=== PATIENT | female | born 1975 | race Caucasian/White ===

== ENCOUNTER 2023-06-08 10:42 | Emergency (ER) | payer OTHER, MEDICAID, SELFPAY ==
[2023-06-08 10:48] VITALS: BP 158/101; BP 191/34; PULSE 100; PULSE 110; RESP 22; TEMP 36.9; O2SAT 97; O2SAT 98; BMI 32.9
--- NOTE | 2023-06-08 10:52 | ECG_ITS ---
Test Reason : high bp Blood Pressure : / mmHG Vent. Rate : 101 BPM Atrial Rate : 101 BPM P-R Int : 180 ms QRS Dur : 082 ms QT Int : 354 ms P-R-T Axes : 027 064 022 degrees QTc Int : 459 ms Sinus tachycardia Otherwise normal ECG When compared with ECG of 12-NOV-2016 13:28, Vent. rate has increased BY 45 BPM QT has lengthened Referred By: Dipti Reynoso Electronically Signed By:VINICIO GUAJARDO
--- NOTE | 2023-06-08 10:52 | ED.GENADULT ---
HPI - General Adult General Chief complaint: General Medical Stated complaint: SWEATY,HIGH BP 190/76 @ WORK PER EMS Source: patient Mode of arrival: EMS Limitations: no limitations History of Present Illness HPI narrative: 48 yo female admits to a lot of caffeine just had a URI negative COVID test x 3 at home - works in elementary school as a para. Notes today at school felt sweat and hot. She did not have a fever. School RN reported BP was high 191/188. Patient has not been to a doctor in 5 years. She has no CP/SOB, headaches, nausea, numbness or weakness. Has not taken any OTC cough or cold medications. MD complaint: elevated BP, felt hot and sweaty Onset (ago): hour(s) (1) Severity: mild Relieving factors: none Exacerbating factors: none Associated symptoms: other (head cold symptoms) Treatments prior to arrival: none Related Data Previous Rx's Medication Instructions Recorded lisinopril 5 mg tablet 5 mg PO DAILY #30 tabs 06/08/23 Allergies Allergy/AdvReac Type Severity Reaction Status Date / Time No Known Allergies Allergy Unverified 06/05/20 16:37 [No Known Allergies*] Review of Systems Review of Systems: Constitutional : No Fever, No Chills, No Fatigue, pos sweats ENT/Mouth : No sore throat, pos Rhinorrhea Eyes: No Eye Pain, No Swelling, No Redness Cardiovascular : No Chest Pain, No SOB, No Dyspnea on Exertion Respiratory : No Cough, No Sputum Gastrointestinal : No Nausea, No Vomiting, No Diarrhea, No abdominal Pain Genitourinary : No Dysuria, No Urinary Frequency, No Hematuria, Musculoskeletal : No joint pain, No Myalgias, No Joint Swelling Skin : No Skin Lesions, No rash Neuro : No Weakness, No Numbness, No Dizziness, no Headache Psych : No Anxiety/Panic, No Depression All other systems reviewed and are negative [facility] Past Medical History Attestation statement: The following information was validated with the patient. Medical History No pertinent past medical history Social History Social History (Updated 06/08/23 @ 10:54 by Dipti Reynoso DO) Alcohol intake: current Alcohol intake frequency: holidays/special occasions only Patient Tobacco Use Status: Current everyday Tobacco user Smoked in Last 30 Days: Yes Use of substances other than those prescribed or required for medical reasons: No Advance Directives: No Physical Exam ED Vital Signs: Vital Signs - 24 hr 06/08/23 10:48 06/08/23 12:31 06/08/23 13:00 Temperature 98.4 F 98.3 F Pulse Rate 110 H 91 94 Respiratory Rate 22 H 18 16 Blood Pressure 191/34 H 183/122 H 175/124 H Pulse Oximetry 97 97 98 Oxygen Delivery Method Room Air Room Air Room Air BMI result Body Mass Index 32.9 Appearance: Alert. Oriented X3. No acute distress. Eyes: Pupils equal, round and reactive to light. ENT: Pharynx normal. Neck: Normal inspection. Neck supple. CVS: tachycardic heart rate and rhythm. Pulses normal. Respiratory: No respiratory distress. Breath sounds normal. Abdomen: Soft and nontender. Skin: Skin warm and dry. Normal skin color. Normal skin turgor. Extremities: No lower extremity edema. No calf ttp Neuro: Oriented X 3. No motor deficit. No sensory deficit. Course Course Course Narrative: asymptomatic will start on lisinopril Medications Administered Discontinued Medications Generic Name Dose Route Start Last Admin Trade Name Freq PRN Reason Stop Dose Admin Lisinopril 5 mg 06/08/23 12:34 06/08/23 12:43 Lisinopril 5 Mg Tablet PO 06/08/23 12:35 5 mg ONCE ONE Administration Protocol Medical Decision Making Medical Decision Making [facility] Narrative: 48 yo female with no sig PMH but doesn't go to the doctors regularly has not had a check up in 5 years here with c/o recent URI not on OTC cough or cold medications now with asymptomatic HTN - at this time no CP/SOB, headaches no signs of end organ damage will obtain EKG, basic labs, COVID/flu swabs possibly start on low dose anti-HTN if BP remains high. doubt ICH given no headaches or neuro findings. Differential Diagnosis Differential Diagnoses: The differential diagnosis associated with the presentation includes asymptomatic HTN, response to URI, caffeine ingestion, anxiety Admission/Observation Consideration of admission/observation: Escalation of care including admission/observation considered asymptomatic can be managed as outpatient Lab Data [facility] Lab Attestation statement: I reviewed the patient's lab results. 06/08/23 12:24 06/08/23 12:23 Labs: Lab Results 09/20/23 09/20/23 Range/Units 12:23 12:24 WBC 7.9 (4.8-10.8) X10*3/uL RBC 5.50 (4.20-5.50) X10*6/uL Hgb 14.8 (12.0-16.0) g/dl Hct 43.8 (37.0-47.0) % MCV 79.6 L (80.0-98.0) fL MCH 26.9 L (27.0-33.0) pg MCHC 33.8 (31.0-35.0) g/dl RDW 12.7 (11.0-16.0) % Plt Count 433 H (160-400) X10*3/uL MPV 8.7 L (9.4-12.3) fL Immature Gran % (Auto) 0.3 (0.0-0.4) % Neut % (Auto) 59.9 (45-73) % Lymph % (Auto) 29.3 (20-40) % [place] % (Auto) 7.3 (2-11) % Eos % (Auto) 2.3 (0-4) % Baso % (Auto) 0.9 (0-2) % Lymph # (Auto) 2.3 (1.2-4.9) X10*3/uL [place] # (Auto) 0.6 (0.1-1.2) X10*3/uL Eos # (Auto) 0.2 (0.0-0.4) X10*3/uL Baso # (Auto) 0.1 (0.0-0.2) X10*3/uL Abs Immat Gran (auto) 0.02 (0.00-0.03) X10*3/uL Absolute Neuts (auto) 4.7 (2.0-8.3) x10*3/uL Absolute Nucleated RBC 0.000 (0.0-0.012) X10*3/uL Nucleated RBC % (auto) 0.0 (0.0-0.2) /100WBC Sodium 140 (135-145) mmol/L Potassium 4.1 (3.3-5.1) mmol/L Chloride 110 H (96-108) mmol/L Carbon Dioxide 21 L (22-29) mmol/L Anion Gap 13 (12-20) BUN 14 (9-16) mg/dL Creatinine 0.86 (0.5-1.4) mg/dL Estim Creat Clear Calc 80.0 Estimated GFR > 60 Random Glucose 90 (60-115) mg/dL Calcium 9.9 (8.4-10.2) mg/dL Magnesium 2.2 (1.6-2.6) mg/dL Total Bilirubin 0.4 (0.0-1.0) mg/dL Direct Bilirubin 0.2 (0.0-0.5) mg/dL AST 18 (5-31) U/L ALT 14 (0-31) U/L Alkaline Phosphatase 93 (39-117) U/L Total Protein 8.0 (6.5-8.0) g/dL Albumin 4.4 (3.5-5.0) g/dL COVID-19 (BETINA) Negative (Negative) COVID-19 Clin Com See Note Influenza Type A (MARIELA) Negative (Negative) Influenza Type B (MARIELA) Negative (Negative) Influenza A & B Note See Note Independent Interpretation I performed an independent interpretation of an: EKG Interpretation: Rate: 101 Rhythm: sinus tachycardia [place]: normal Normal P waves. Normal JOAQUÍN. Normal QRS complex. ST T wave : normal no MYRIAM qTC: normal prior studies: no acute ischemia The study has been interpreted contemporaneously by me. . Independent Historian Clinical information obtained from an independent historian. History obtained from or confirmed by: EMS Tests considered The following testing was considered but not selected: CT head but neuro intact and no headache doubt ICH Prescription Management I considered prescription management with: Other (lisinopril) Discharge Plan Discharge Clinical Impression: Asymptomatic hypertension Patient Disposition: Home, Self-Care Instructions: Lisinopril (By mouth), Hypertension (ED) Additional Instructions: return for oral swelling lip swelling - seek care if this happens chest pain/numbness/weakness, severe headaches or any other concerns. you need to see a PCP as soon as possible negative for flu and COVID Prescriptions: New lisinopril 5 mg tablet 5 mg PO DAILY Qty: 30 1RF Stand Alone Forms: Work/School Release Interventions: ED Discharge Assessment Last Done: 06/08/23 13:05 Discharge Date/Time: 06/08/23 13:07
[2023-06-08 12:29] LABS: MANUAL DIFF FLAG NO
[2023-06-08 12:31] VITALS: BP 183/122; PULSE 91; RESP 18; TEMP 36.8; O2SAT 97
[2023-06-08 12:31] LABS: Basophils Absolute Auto 0.1 X10*3/uL (0.0-0.2); Basophils Percent Auto 0.9 % (0-2); Eosinophils Absolute Auto 0.2 X10*3/uL (0.0-0.4); Eosinophils Percent Auto 2.3 % (0-4); Hematocrit 43.8 % (37.0-47.0); Hemoglobin 14.8 g/dl (12.0-16.0); Imm Gran Abs Auto 0.02 X10*3/uL (0.00-0.03); Imm Gran Pct Auto 0.3 % (0.0-0.4); Lymphocytes Absolute Auto 2.3 X10*3/uL (1.2-4.9); Lymphocytes Percent Auto 29.3 % (20-40); Mean Corpuscular HGB Conc 33.8 g/dl (31.0-35.0); Mean Corpuscular Hemoglobin 26.9 pg (27.0-33.0); Mean Corpuscular Volume 79.6 fL (80.0-98.0); Mean Platelet Volume 8.7 fL (9.4-12.3); Monocytes Absolute Auto 0.6 X10*3/uL (0.1-1.2); Monocytes Percent Auto 7.3 % (2-11); Neutrophils Absolute Auto 4.7 x10*3/uL (2.0-8.3); Neutrophils Percent Auto 59.9 % (45-73); Platelet Count 433 X10*3/uL (160-400); Red Cell Distribution Width 12.7 % (11.0-16.0); White Blood Count 7.9 X10*3/uL (4.8-10.8)
[2023-06-08] MEDS: lisinopriL 5 MG TABLET PO (12:43)
[2023-06-08 12:44] LABS: Alanine Aminotransferase 14 U/L (0-31); Albumin Level 4.4 g/dL (3.5-5.0); Alkaline Phosphatase 93 U/L (39-117); Anion Gap 13 (12-20); Aspartate Amino Transferase 18 U/L (5-31); Bilirubin Direct 0.2 mg/dL (0.0-0.5); Bilirubin Total 0.4 mg/dL (0.0-1.0); Blood Urea Nitrogen 14 mg/dL (9-16); Calcium 9.9 mg/dL (8.4-10.2); Carbon Dioxide 21 mmol/L (22-29); Chloride 110 mmol/L (96-108); Estimated Glomerular Filt Rate > 60; Glucose Random 90 mg/dL (60-115); Magnesium 2.2 mg/dL (1.6-2.6); Potassium 4.1 mmol/L (3.3-5.1); Sodium 140 mmol/L (135-145)
[2023-06-08 12:45] LABS: COVID-19 Test Negative (Negative); IDNOW Serial# 08D9AD1C
[2023-06-08 12:46] LABS: IDNOW Serial# BCCEAD1C; Influenza A Negative (Negative); Influenza B2 Negative (Negative)
[2023-06-08 13:00] VITALS: BP 175/124; PULSE 94; RESP 16; O2SAT 98
== END 2023-06-08 13:07 | disposition home or self-care (01) ==
PROVIDERS: Emergency Provider Emergency Medicine
DX: R61 Generalized hyperhidrosis (principal); R00.0 Tachycardia, unspecified; I10 Essential (primary) hypertension; Z20.822 Contact with and (suspected) exposure to COVID-19; Z20.828 Contact with and (suspected) exposure to other viral communicable diseases; Z79.899 Other long term (current) drug therapy
CPT/HCPCS: 36415; 80048; 80076; 83735; 85025; 87502; 87635; 93005; 99283; 99284

== ENCOUNTER 2023-08-06 17:28 | Emergency (ER) | payer OTHER, SELFPAY ==
[2023-08-06 17:39] VITALS: BP 179/114; PULSE 102; RESP 18; TEMP 36.7; O2SAT 97; BMI 31.3
--- NOTE | 2023-08-06 17:40 | ED.GENADULT ---
HPI - General Adult General Chief complaint: General Medical Stated complaint: Low blood pressure Time Seen by Provider: 08/06/23 21:55 Related Data Previous Rx's Medication Instructions Recorded lisinopril 5 mg tablet 5 mg PO DAILY #30 tabs 06/08/23 Allergies Allergy/AdvReac Type Severity Reaction Status Date / Time No Known Allergies Allergy Verified 08/06/23 17:39 [No Known Allergies*] [facility] Past Medical History Medical History No pertinent past medical history Social History Social History (Updated 06/08/23 @ 10:54 by Dipti Reynoso DO) Alcohol intake: current Alcohol intake frequency: holidays/special occasions only Patient Tobacco Use Status: Current everyday Tobacco user Smoked in Last 30 Days: No Advance Directives: No Advance Directives Information Provided: No Physical Exam ED Vital Signs: BMI result Body Mass Index 31.3 Course Course Course Narrative: This is an RME: Additional HPI, ROS, PE not included below will be deferred to primary provider. This is a 26-wizz-amn-female, with hx of hypertension, presenting to the emergency department with complaints of nausea, lightheaded, and headache since today. No CP or SOB. Patient reports that she was recently diagnosed with hypertension 1 month ago and was started on lisinopril 20 mg. She has been monitor her blood pressure, states that her blood pressure was 90/70s yesterday and she called her primary care physician who made her an appointment on Tuesday. She states that she was unsure whether not to take her blood pressure medication. Patient is hypertensive 179/114. Patient has no shortness breath or chest pain. No vision changes. Plan: Labs, UA, ekg Reevaluation(s) Reevaluation #1: pt eloped prior to full eval Medical Decision Making Lab Data 08/06/23 18:11 08/06/23 18:11 Labs: Lab Results 08/06/23 Range/Units 18:11 WBC 10.4 (4.8-10.8) X10*3/uL RBC 5.86 H (4.20-5.50) X10*6/uL Hgb 15.8 (12.0-16.0) g/dl Hct 47.0 (37.0-47.0) % MCV 80.2 (80.0-98.0) fL MCH 27.0 (27.0-33.0) pg MCHC 33.6 (31.0-35.0) g/dl RDW 12.9 (11.0-16.0) % Plt Count 359 (160-400) X10*3/uL MPV 9.7 (9.4-12.3) fL Immature Gran % (Auto) 0.4 (0.0-0.4) % Neut % (Auto) 56.8 (45-73) % Lymph % (Auto) 33.7 (20-40) % [place] % (Auto) 6.0 (2-11) % Eos % (Auto) 2.3 (0-4) % Baso % (Auto) 0.8 (0-2) % Lymph # (Auto) 3.5 (1.2-4.9) X10*3/uL [place] # (Auto) 0.6 (0.1-1.2) X10*3/uL Eos # (Auto) 0.2 (0.0-0.4) X10*3/uL Baso # (Auto) 0.1 (0.0-0.2) X10*3/uL Abs Immat Gran (auto) 0.04 H (0.00-0.03) X10*3/uL Absolute Neuts (auto) 5.9 (2.0-8.3) x10*3/uL Absolute Nucleated RBC 0.000 (0.0-0.012) X10*3/uL Nucleated RBC % (auto) 0.0 (0.0-0.2) /100WBC Sodium 138 (135-145) mmol/L Potassium 3.6 (3.3-5.1) mmol/L Chloride 106 (96-108) mmol/L Carbon Dioxide 23 (22-29) mmol/L Anion Gap 13 (12-20) BUN 11 (9-16) mg/dL Creatinine 0.83 (0.5-1.4) mg/dL Estim Creat Clear Calc 80.8 Estimated GFR > 60 Random Glucose 88 (60-115) mg/dL Calcium 9.9 (8.4-10.2) mg/dL Total Bilirubin 0.3 (0.0-1.0) mg/dL Direct Bilirubin 0.1 (0.0-0.5) mg/dL AST 16 (5-31) U/L ALT 9 (0-31) U/L Alkaline Phosphatase 93 (39-117) U/L Total Protein 8.6 H (6.5-8.0) g/dL Albumin 4.7 (3.5-5.0) g/dL Urine Color Yellow Urine Appearance Clear Urine pH 6.0 (5.0-9.0) Ur Specific [place] <= 1.005 (1.005-1.025) Urine Protein Negative (Neg-Trace) mg/dL Urine Glucose (UA) Negative (Negative) mg/dL Urine Ketones Negative (Negative) mg/dL Urine Blood Negative (Negative) Urine Nitrite Negative (Negative) Ur Leukocyte Esterase Negative (Negative) Discharge Plan Discharge Clinical Impression: Headache Patient Disposition: Elopement Prescriptions: No Action lisinopril 5 mg tablet 5 mg PO DAILY Qty: 30 1RF Discharge Date/Time: 08/06/23 22:41
--- NOTE | 2023-08-06 17:45 | ECG_ITS ---
Test Reason : LOW BLOOD PRESSUE Blood Pressure : / mmHG Vent. Rate : 089 BPM Atrial Rate : 089 BPM P-R Int : 186 ms QRS Dur : 084 ms QT Int : 354 ms P-R-T Axes : 022 006 007 degrees QTc Int : 430 ms Normal sinus rhythm Low voltage QRS Nonspecific T wave abnormality Abnormal ECG When compared with ECG of 08-JUN-2023 10:55, Questionable change in QRS axis Referred By: Norah Christopher Electronically Signed By:SHIVA DRIVER MD
[2023-08-06 18:15] LABS: MANUAL DIFF FLAG NO
[2023-08-06 18:17] LABS: Appearance Urine Clear; Color Urine Yellow; Glucose Urine UA Negative (Negative); Leukocyte Esterase Urine Negative (Negative); Nitrite Urine Negative (Negative); Specific Gravity - Urine <= 1.005 (1.005-1.025); Urine Blood Negative (Negative); Urine Ketones Negative (Negative); Urine Protein Negative (Neg-Trace)
[2023-08-06 18:33] LABS: Alanine Aminotransferase 9 U/L (0-31); Albumin Level 4.7 g/dL (3.5-5.0); Alkaline Phosphatase 93 U/L (39-117); Anion Gap 13 (12-20); Aspartate Amino Transferase 16 U/L (5-31); Bilirubin Direct 0.1 mg/dL (0.0-0.5); Bilirubin Total 0.3 mg/dL (0.0-1.0); Blood Urea Nitrogen 11 mg/dL (9-16); Calcium 9.9 mg/dL (8.4-10.2); Carbon Dioxide 23 mmol/L (22-29); Chloride 106 mmol/L (96-108); Creatinine Clr Calc Pharmacy 80.8; Estimated Glomerular Filt Rate > 60; Glucose Random 88 mg/dL (60-115); Potassium 3.6 mmol/L (3.3-5.1); Sodium 138 mmol/L (135-145); Total Protein 8.6 g/dL (6.5-8.0)
[2023-08-06 18:40] LABS: Basophils Absolute Auto 0.1 X10*3/uL (0.0-0.2); Basophils Percent Auto 0.8 % (0-2); Eosinophils Absolute Auto 0.2 X10*3/uL (0.0-0.4); Eosinophils Percent Auto 2.3 % (0-4); Hemoglobin 15.8 g/dl (12.0-16.0); Imm Gran Abs Auto 0.04 X10*3/uL (0.00-0.03); Imm Gran Pct Auto 0.4 % (0.0-0.4); Lymphocytes Absolute Auto 3.5 X10*3/uL (1.2-4.9); Lymphocytes Percent Auto 33.7 % (20-40); Mean Corpuscular HGB Conc 33.6 g/dl (31.0-35.0); Mean Corpuscular Volume 80.2 fL (80.0-98.0); Mean Platelet Volume 9.7 fL (9.4-12.3); Monocytes Absolute Auto 0.6 X10*3/uL (0.1-1.2); Neutrophils Absolute Auto 5.9 x10*3/uL (2.0-8.3); Neutrophils Percent Auto 56.8 % (45-73); Platelet Count 359 X10*3/uL (160-400); Red Blood Count 5.86 X10*6/uL (4.20-5.50); Red Cell Distribution Width 12.9 % (11.0-16.0); White Blood Count 10.4 X10*3/uL (4.8-10.8)
[2023-08-06 18:41] VITALS: BP 161/103; PULSE 101; RESP 19; TEMP 37.1; O2SAT 99
[2023-08-06 20:00] VITALS: BP 164/109; PULSE 88; RESP 16; O2SAT 98
[2023-08-06 21:19] VITALS: BP 169/101; PULSE 89; RESP 16; O2SAT 98
--- NOTE | 2023-08-06 22:39 | PC.NURSE ---
pt requesting to leave; states she has kids at home and needs to get back to take care of them. this RN attempted to talk to pt to get her to stay however she was adamant about leaving. pt ambulated with a steady gait out of the ER. devulcanizer charger aware.
== END 2023-08-06 22:41 | disposition left against medical advice (07) ==
PROVIDERS: Physician Assistant Medical; Emergency Provider Emergency Medicine; PCP Family Medicine
DX: R51.9 Headache, unspecified (principal); F17.200 Nicotine dependence, unspecified, uncomplicated
CPT/HCPCS: 36415; 80048; 80076; 81003; 85025; 93005; 99283; 99284

== ENCOUNTER 2025-03-01 14:39 | Emergency (ER) | payer OTHER, SELFPAY ==
--- NOTE | ~2025-03-01 | US_ITS ---
CLINICAL HISTORY: R LE edema Venous duplex ultrasound right lower extremity Comparison: None Findings: The visualized deep veins are fully compressible with normal Doppler color flow and spectral tracings. No popliteal cyst. IMPRESSION: 1. Negative for right lower extremity deep vein thrombosis. This document has been electronically signed by: Tatum Jacobson MD on 03/01/2025 17:51:55
[2025-03-01 14:57] VITALS: BP 150/94; PULSE 100; RESP 18; TEMP 36.8; O2SAT 100; BMI 31.7
--- NOTE | 2025-03-01 15:01 | ED.GENADULT ---
HPI - General Adult General Chief complaint: Extremity Injury, Lower Stated complaint: Pain/swelling back of R knee no injury Related Data Previous Rx's ?Medication ?Instructions ?Recorded lisinopril 5 mg tablet 5 mg PO DAILY #30 tabs 06/08/23 Allergies Allergy/AdvReac Type Severity Reaction Status Date / Time No Known Allergies Allergy Verified 03/01/25 14:58 [No Known Allergies*] [facility] Past Medical History Medical History No pertinent past medical history Social History Social History (Updated 06/08/23 @ 10:54 by Dipti Reynoso DO) Alcohol intake: current Alcohol intake frequency: holidays/special occasions only Patient Tobacco Use Status: Current everyday Tobacco user Advance Directives: No Advance Directives Information Provided: No Physical Exam ED Vital Signs: Vital Signs - 24 hr 03/01/25 14:57 Temperature 98.2 F Pulse Rate 100 Respiratory Rate 18 Blood Pressure 150/94 H Pulse Oximetry 100 Oxygen Delivery Method Room Air BMI result Body Mass Index 31.7 Course Course Course Narrative: This is an RME: Additional HPI, ROS, PE not included below will be deferred to primary provider. RME assessment and note performed by: Norah Nunez PA-C This is a 49-year-old female, with a history of breast cancer on tamoxifen, hypertension, who presents emergency department with concerns for right lower extremity pain and swelling. Also reports that she has had some rash developing around her right foot and ankle. No new injury or trauma. Plan: Labs, ultrasound, further ER evaluation needed. Reevaluation(s) Reevaluation #1: Patient left without completing treatment. Medical Decision Making Lab Data 03/01/25 15:17 03/01/25 15:17 Labs: Lab Results 03/01/25 Range/Units 15:17 WBC 7.1 (4.8-10.8) X10*3/uL RBC 4.80 (4.20-5.50) X10*6/uL Hgb 14.2 (12.0-16.0) g/dl Hct 40.6 (37.0-47.0) % MCV 84.6 (80.0-98.0) fL MCH 29.6 (27.0-33.0) pg MCHC 35.0 (31.0-35.0) g/dl RDW 12.0 (11.0-16.0) % Plt Count 303 (160-400) X10*3/uL MPV 9.0 L (9.4-12.3) fL Immature Gran % (Auto) 0.1 (0.0-0.4) % Neut % (Auto) 63.3 (45-73) % Lymph % (Auto) 26.9 (20-40) % [place] % (Auto) 6.5 (2-11) % Eos % (Auto) 2.2 (0-4) % Baso % (Auto) 1.0 (0-2) % Lymph # (Auto) 1.9 (1.2-4.9) X10*3/uL [place] # (Auto) 0.5 (0.1-1.2) X10*3/uL Eos # (Auto) 0.2 (0.0-0.4) X10*3/uL Baso # (Auto) 0.1 (0.0-0.2) X10*3/uL Abs Immat Gran (auto) 0.01 (0.00-0.03) X10*3/uL Absolute Neuts (auto) 4.5 (2.0-8.3) x10*3/uL Absolute Nucleated RBC 0.000 (0.0-0.012) X10*3/uL Nucleated RBC % (auto) 0.0 (0.0-0.2) /100WBC Sodium 139 (135-145) mmol/L Potassium 3.9 (3.3-5.1) mmol/L Chloride 107 (96-108) mmol/L Carbon Dioxide 20 L (22-29) mmol/L Anion Gap 16 (12-20) BUN 14 (9-16) mg/dL Creatinine 0.95 (0.5-1.4) mg/dL Estim Creat Clear Calc 70.3 Estimated GFR > 60 Random Glucose 94 (60-115) mg/dL Calcium 9.4 (8.4-10.2) mg/dL Total Bilirubin 0.5 (0.0-1.0) mg/dL Direct Bilirubin 0.2 (0.0-0.5) mg/dL AST 27 (5-31) U/L ALT 20 (0-31) U/L Alkaline Phosphatase 80 (39-117) U/L Total Protein 7.8 (6.5-8.0) g/dL Albumin 4.8 (3.5-5.0) g/dL Discharge Plan Discharge Clinical Impression: Pain in right leg Patient Disposition: Left W/O Completing Treatment Prescriptions: No Action lisinopril 5 mg tablet 5 mg PO DAILY Qty: 30 1RF Discharge Date/Time: 03/01/25 22:33
[2025-03-01 15:21] LABS: MANUAL DIFF FLAG NO
[2025-03-01 15:23] LABS: Basophils Absolute Auto 0.1 X10*3/uL (0.0-0.2); Eosinophils Absolute Auto 0.2 X10*3/uL (0.0-0.4); Eosinophils Percent Auto 2.2 % (0-4); Hematocrit 40.6 % (37.0-47.0); Hemoglobin 14.2 g/dl (12.0-16.0); Imm Gran Abs Auto 0.01 X10*3/uL (0.00-0.03); Imm Gran Pct Auto 0.1 % (0.0-0.4); Lymphocytes Absolute Auto 1.9 X10*3/uL (1.2-4.9); Lymphocytes Percent Auto 26.9 % (20-40); Mean Corpuscular Hemoglobin 29.6 pg (27.0-33.0); Mean Corpuscular Volume 84.6 fL (80.0-98.0); Monocytes Absolute Auto 0.5 X10*3/uL (0.1-1.2); Monocytes Percent Auto 6.5 % (2-11); Neutrophils Absolute Auto 4.5 x10*3/uL (2.0-8.3); Neutrophils Percent Auto 63.3 % (45-73); Platelet Count 303 X10*3/uL (160-400); White Blood Count 7.1 X10*3/uL (4.8-10.8)
[2025-03-01 15:39] LABS: Alanine Aminotransferase 20 U/L (0-31); Albumin Level 4.8 g/dL (3.5-5.0); Alkaline Phosphatase 80 U/L (39-117); Anion Gap 16 (12-20); Aspartate Amino Transferase 27 U/L (5-31); Bilirubin Direct 0.2 mg/dL (0.0-0.5); Bilirubin Total 0.5 mg/dL (0.0-1.0); Blood Urea Nitrogen 14 mg/dL (9-16); Calcium 9.4 mg/dL (8.4-10.2); Carbon Dioxide 20 mmol/L (22-29); Chloride 107 mmol/L (96-108); Creatinine Clr Calc Pharmacy 70.3; Estimated Glomerular Filt Rate > 60; Glucose Random 94 mg/dL (60-115); Potassium 3.9 mmol/L (3.3-5.1); Sodium 139 mmol/L (135-145); Total Protein 7.8 g/dL (6.5-8.0)
== END 2025-03-01 22:33 | disposition left against medical advice (07) ==
LOC: HO.ED 22:29
PROVIDERS: Physician Assistant Medical; Emergency Provider Emergency Medicine; PCP Family Medicine
DX: M79.604 Pain in right leg (principal); R21 Rash and other nonspecific skin eruption; M79.89 Other specified soft tissue disorders
CPT/HCPCS: 36415; 80048; 80076; 85025; 93971; 99281; 99284

== ENCOUNTER → 2025-03-01 15:04 | Outpatient (BNV) | payer OTHER, SELFPAY | PROVIDERS: PCP Family Medicine; Visit Provider Nuclear Medicine | DX: R60.0 Localized edema (principal) | CPT/HCPCS: 93971 ==